=== PATIENT | female | born 1935 | race Caucasian/White ===

== ENCOUNTER → 2016-11-30 | Outpatient (CLI) | payer MEDICARE, OTHER ==
[~2016-11-30] MED LIST: ASPIRIN 81MG TA81 MG PO; ASPIRIN CHILDRE81 M1 PO; BENAZEPRIL HCL PO; BISOPROLOL 5MG T5 MG PO; CALCIUM 600 PLU1 TAB PO; DILTIAZEM CD120 MG PO; ELIQUIS5 MG PO; ENALAPRIL10 MG PO; FISH OIL CONC1000 MG PO; GABAPENTIN100 MG PO; ICAPS MV1 TAB PO; K-DUR 20MEQ TA20 MEQ PO; LEVOTHYROXINE0.05 MG PO; LISINOPRIL HCTZ1 TAB PO; NIASPAN500 MG; PRESERVISION AR1 SGL PO; PRILOSEC20 M1 PO; RECLAST5 MG/100 M IV; VITAMIN B121 TA1 PO; VITAMIN B121000 MC2 SL; XARELTO20 MG PO; ZOCOR20 MG PO; ZOCOR40 MG PO
--- NOTE | 2016-12-01 15:58 | RADIOLOGY REPORT PS360 ---
PROCEDURE: 2-D M-mode and color Doppler study INDICATIONS FOR THE TEST: Chest pain COPD Heart Murmur Tobacco Smoking Palpitations+ Fatigue Syncope Edema Hypertension+Diabetes Mellitus Rheumatic Fever SOB+MOTLEY Obesity Hyperlipidemia+ Family History HD Additional History PATIENT INFORMATION HEIGHT: 60 WEIGHT:175 GENDER: Female B/P:150/70 2-D/M-MODE INTERPRETATION: 2-D MEASUREMENTS OBSERVED VALUES IN CMS Right Ventricular Dimension (RVDd) 2.6 Interventricular Septum (Thickness)(IVsd) 1.7 Left Ventricular Internal Dimensions(LVIDd) 4.7 Left Ventricular Posterior Wall (Thickness)(LVPWd 1.1 Aortic Root 3.0 Aortic Cusp Separation 1.7 Left Atrial Dimensions (LAD) 4.4 2D 1. Left atrium is mildly enlarged, left ventricle is normal size, there is mild concentric left ventricular hypertrophy present, septum has sigmoid configuration, visually estimated ejection fraction 55% with no obvious regional wall motion abnormality. 2. The right atrium and right ventricle are relatively normal size and contractility. 3. The aortic valve is minimally thickened and fibrosed. 4. The mitral and tricuspid valve are minimally thickened. 5. The pulmonic valve is poorly visualized. 6. No significant pericardial effusion noted. DOPPLER INTERROGATION: The Doppler interrogation of the aortic, mitral and tricuspid valvular presence of mild aortic, mild mitral and tricuspid regurgitation, calculated right ventricular systolic pressure is 50 mmHg consistent with moderate pulmonary hypertension, grade 1 diastolic dysfunction seen with tissue Doppler evidence of raised left atrial pressure. CONCLUSION: 1. Mildly enlarged left atrium, normal left ventricular size, mild concentric left ventricular hypertrophy, septum has sigmoid configuration, visually estimated ejection fraction 55% with no obvious regional wall motion abnormality. Grade 1 diastolic dysfunction seen with tissue Doppler evidence of raised left atrial pressure. 2. Mild aortic, mild mitral and tricuspid regurgitation, calculated right ventricular systolic pressure is 50 mmHg consistent with moderate pulmonary hypertension. 3. No significant pericardial effusion noted.
== END ==
LOC: RT 09:30
DX: I48.0 Paroxysmal atrial fibrillation (principal); I10 Essential (primary) hypertension; I11.9 Hypertensive heart disease without heart failure; E78.5 Hyperlipidemia, unspecified